=== PATIENT | male | born 2000 | race Caucasian/White ===

== ENCOUNTER 2025-07-28 20:15 | Inpatient (IN) | payer OTHER, SELFPAY ==
[2025-07-28 20:18] VITALS: BP 164/96; PULSE 99; O2SAT 98
--- NOTE | 2025-07-28 20:24 | PC.NURSE ---
pt unable to stand or participate in supervisor records change. security safety check done. nothing found per security.
[2025-07-28 20:38] VITALS: BP 155/93; PULSE 92; RESP 16; TEMP 36.7; O2SAT 97; BMI 45.6
--- NOTE | 2025-07-28 20:54 | ECG_ITS ---
Test Reason : MEDICAL CLEARANCE Blood Pressure : */* mmHG Vent. Rate : 89 BPM Atrial Rate : 89 BPM P-R Int : 166 ms QRS Dur : 90 ms QT Int : 378 ms P-R-T Axes : 28 32 12 degrees QTcB Int : 459 ms Normal sinus rhythm Normal ECG No previous ECGs available Referred By: Ana María Dubose Electronically Signed By: KATHY PUCKETT
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
--- OUTSIDE RECORDS SUMMARY | 2025-07-28 21:22 | XMS_ITS | Encounter Summary ---
Author Organization [facility] Address [address] [place] [phone] Phone Care Team Providers Care Nail Assembly Machine Operator Name Role Phone Fredy Tobar MD Primary Care Provider [phone] Encounter Details Date Type Department Care Team ([facility] st Contact Info) Description 03/12/2011 Conversion Encounter [facility] [address] [place] [address] [place] [id number] Social History Tobacco Use Types Packs/Day Years Used Date Smoking Tobacco: Never Assessed Sex and Gender Information Value Date Recorded Sex Assigned at Not on file Legal Sex Male 6:38 PM EDT Gender Identity Not on file Sexual Orientation Not on file documented as of this encounter Plan of Treatment Not on file documented as of this encounter Visit Diagnoses Not on filedocumented in this encounter Care Teams Nail Assembly Machine Operator Relationship Specialty Start Date End Date Fredy Tobar MD [address] [place] [address] [place] [id number] PCP - General 12/30/17 02/01/25 documented as of this encounter
--- OUTSIDE RECORDS SUMMARY | 2025-07-28 21:23 | XMS_ITS | Encounter Summary ---
Author Organization [facility] Address [address] [place] [id number] Phone Care Team Providers Care Swimming Pool Plasterer Helper Name Role Phone Fredy Tobar MD Primary Care Provider [phone] Reason for Visit * Reason Comments Med Change Request Encounter Details Date Type Department Care Team (Late st Contact Info) Description 06/07/2022 Refill [facility] [address] [place] [address] [place] [phone] Fredy Tobar MD [address] [place] [address] [place] [id number] Asthma, unspecified asthma severity, unspecified whether complicated, unspecified whether persistent Social History Tobacco Use Types Packs/Day Years Used Date Smoking Tobacco: Never Comments:Never Smoker Hunger/Food Answer Date Recorded In the last 12 months, did y ou or your family ever eat less than you felt you should because there wasn't enough money for food? No 01/29/2021 Stable Housing Answer Date Recorded Are you worried that in the next 2 months you may not have stable housing? No 01/29/2021 Transportation Concerns Answer Date Rec orded In the last 12 months, have you or your family ever had to go without healthcare because you didn't have a way to get there? No 01/29/2021 Hazards in Home Answer Date Recorded Think about the place you li ve. Do you have problems with any of the following? Pests (mice or roaches), mold, no/not working smoke detectors, water leaks, no window guards. No 2020 Financing Utilities Answer Date Recorde d In the last 12 months, has t he electric, gas, oil, or water company threatened to shut off your services in your home? No 01/29/2021 Safety at Home Answer Date Recorded Are you or your family worried about feeling saf e in your home? No 01/29/2021 Outside Support Answer Date Recorded Do you feel that you need mo re support from other people or programs to help you care for yourself or your family? No 01/29/2021 Understanding Health Concerns Answer Da te Recorded Do you need help understandi ng your or your child's healthcare needs (diagnosis, medications, plan, etc.)? No 01/29/2021 Financing Health Concerns Answer Date R ecorded In the last 12 months, was t here a time when your child needed to see a doctor or get medications or supplies but could not because of cost? No 01/29/2021 Missing School or Work Answer Date Nehemiah rded Did you or your child miss s chool or work because of a health problem that could have been avoided? No 01/29/2021 Sex and Gender Information Value Date Recorded Sex Assigned at Not on file Legal Sex Male 6:38 PM EDT Gender Identity Not on file Sexual Orientation Not on file documented as of this encounter Miscellaneous Notes * Telephone Encounter - Bridget Ledesma MA - 06/09/2022 8:39 AM EDT Overdue for wcc and nothing scheduled. PLEASE REFUSE documented in this encounter Plan of Treatment Not on file documented as of this encounter Visit Diagnoses Diagnosis Asthma, unspecified asthma severity, unspecified whether complicated, unspecified whether persistent documented in this encounter Care Teams Swimming Pool Plasterer Helper Relationship Specialty Start Date End Date Fredy Tobar MD [facility] [facility] [place] [address] PCP - General 12/30/17 02/01/25 documented as of this encounter
--- OUTSIDE RECORDS SUMMARY | 2025-07-28 21:23 | XMS_ITS | Clinical Summary ---
Author Organization [facility] Address [address] [place] [id number] Phone Care Team Providers Care Uniform Room Attendant Name Role Phone Unavailable Primary Care Provider Unavailabl e Allergies No known active allergies Medications albuterol (2.5 MG/3ML) 0.083% nebulizer solutionIndicat ions:Asthma, unspecified asthma severity, unspecified whether complicated, unspecified whether persistent Take 3 mL (2.5 mg total) by nebulization every 6 (six) hours as needed for wheezing. 90 mL 1 06/02/20 24 Active albuterol HFA (Ventolin HFA) 108 (90 Base) MCG/ACT inhalerIndicati ons:Asthma, unspecified asthma severity, unspecified whether complicated, unspecified whether persistent INHALE 2 PUFFS BY MOUTH EVERY 4 HOURS NEEDED FOR WHEEZING OR SHORTNESS OF BREATH 1 Units 1 04/28/20 25 Active budesonide (Pulmicort Flexhaler) 90 MCG/ACT inhalerIndicati ons:Moderate persistent asthma without complication INHALE 2 PUFFS EVERY DAY -RINSE MOUTH WITH WATER AFTER USE. DO NOT SWALLOW 1 Units 07/03/20 25 Active budesonide (Pulmicort Flexhaler) 90 MCG/ACT inhalerIndicati ons:Moderate persistent asthma without complication Inhale 2 puffs daily. Rinse mouth with water after use, do not swallow. 1 Units 3 06/27/20 24 2024 Discontinued Active Problems Problem Noted Date Diagnosed Date Refused influenza vaccine 07/11/2024 Moderate persistent asthma without complication 07/11/2024 Assessment & Plan (07/11/2024 2:02 PM EST): PFT shows he has low FVC and FEV1, but the ratio is 90%. He does not have good lung volumes. Perhaps this is why he decompensates quickly. The real issue is his weight. He has been referred to endocrinology, hopefully to discuss pre diabetic/diabetes and the possibility of Ozempic or other treatment. Will let me know if he does not get an appt. Influenza vaccine refused 10/14/2019 Influenza vaccine refused 10/12/2018 Morbid obesity 07/20/2012 Overview (10/12/2018): Morbid obesity (278.01) Onset: 07/20/2012 Added by: Fredy Tobar Assessment & Plan (01/29/2021 4:04 PM EDT): We discussed trying to walk every day. Discussed not binge eating. Need to cut back calories. Resolved Problems Problem Noted Date Diagnosed Date Resolved Date Michele haney 02/05/2019 11/18/2022 Moderate persistent asthma w ith acute exacerbation 11/01/2014 07/11/2024 Overview (06/28/2019): Moderate asthma (exacerbation) (493.02) Onset: 11/01/2014 Added by: Farida Spears 06/27/2019 - Significant asthma exacerbation. Steroid course. Triggers appear to be allergies in summer/fall. Continue with QVAR BID, adding singulair December-Jul. Assessment & Plan (06/03/2024 9:21 AM EDT): Asthma exacerbation. Referring to ED for further treatment of asthma exacerbation. Called expect to [facility] ED. Assessment & Plan (11/11/2023 1:17 PM EDT): Differential includes AOM, pneumonia, viral URI, asthma exacerbation. No signs of AOM or pneumonia. Most likely diagnosis is viral URI with asthma exacerbation. Discussed supportive therapy with fluids and tylenol/ibuprofen for fever. Exam consistent with asthma exacerbation and will treat with corticosteroid course and use of albuterol as needed. Return for ear pain, persistent fever, worsening breathing issues or new symptom. Start back up with controller medication QVAR after prednisone course. He was on flovent previously but this has been discontinued and he was not able to get a refill. Assessment & Plan (09/05/2019 11:48 AM EST): Plan to continue with QVAR and singulair. This is helping some but still needing to use albuterol twice in the last week. Will refer to Dr. Martinez for further evaluation. Assessment & Plan (07/29/2019 10:52 AM EST): Concerning spirometry study today showing significant asthma ongoing. Patient is likely accustomed to a certain amount of asthma going on. Patient did not continue with singulair, discussed going back on this medication for the time being. Continue with QVAR BID. Use albuterol as needed. Follow up in 5-6 weeks. Assessment & Plan (06/28/2019 6:17 AM EST): Differential includes AOM, pneumonia, viral URI, asthma exacerbation. No signs of AOM or pneumonia. Most likely diagnosis is viral URI with asthma exacerbation. Discussed supportive therapy with fluids and tylenol/ibuprofen for fever. Exam consistent with asthma exacerbation and will treat with corticosteroid course and use of albuterol as needed. Return for ear pain, persistent fever, worsening breathing issues or new symptom. Triggers seem to be allergies in summer/fall time of year. Will start singulair and follow up in a month. Likely plan to treat with singulair from December to July. Encounters Date Type Department Care Team Description 07/02/2025 Refill [facility] [address] [place] [address] [place] [id number] Fredy Tobar MD Moderate persistent asthma without complication from Last 3 Months Immunizations Immunization Administration Dates Next Due DTaP 5 04/28/2006, 3,2001,09/01,2001 HPV Vaccine 9 Valent 09/18/2015 HPV, Quadrivalent 11/08/2014,08/29/2014 Hep A, ped/adol 09/10/2017,09/22/2016 Hep B, ped/adol 07/27/2002,2001,2001 Hib (PRP-T) 10/24/2002, 2,2001,06/30 IPV 04/28/2006, 3,2001,06/30 Influenza, injectable, quadr ivalent, preservative free 09/18/2015 Influenza, injectable, trivalent 06/07/2007 MMR 04/28/2006,04/27/2002 Meningococcal Conj (Menactra) MCV4P 09/10/2017,0 09/23/2013 Pneumococcal Conjugate 04/27/2003,2001,04/2002 Tdap 11/18/2022,07/20/2012 Varicella 07/20/2012,04/27/2002 Family History Medical History Relation Name Comments No Known Problems Brother 1 Johnathan No Known Problems Father Son No Known Problems Mother Roland No Known Problems Sister 1 Clara No Known Problems Sister 2 Cristine Relation Name Status Comments Brother 1 Johnathan Alive Brother 2 Gokul (Age 22) Accidental Overdose Father Son Alive Mother Roland Alive Sister 1 Clara Alive Sister 2 Cristine Alive Social History Tobacco Use Types Packs/Day Years Used Date Smoking Tobacco: Never Comments:Never Smoker Alcohol Use Standard Drinks/Week Comments Never 0 (1 standard drink = 0.6 oz pur e alcohol) Hunger/Food Answer Date Recorded In the last 12 months, did y ou or your family ever eat less than you felt you should because there wasn't enough money for food? Yes 05/02/2024 Stable Housing Answer Date Recorded Are you worried that in the next 2 months you may not have stable housing? No 05/02/2024 Transportation Concerns Answer Date Rec orded In the last 12 months, have you or your family ever had to go without healthcare because you didn't have a way to get there? No 05/02/2024 Hazards in Home Answer Date Recorded Think about the place you li ve. Do you have problems with any of the following? Pests (mice or roaches), mold, no/not working smoke detectors, water leaks, no window guards. No 2023 Financing Utilities Answer Date Recorde d In the last 12 months, has t he electric, gas, oil, or water company threatened to shut off your services in your home? No 05/02/2024 Safety at Home Answer Date Recorded Are you or your family worried about feeling saf e in your home? No 05/02/2024 Outside Support Answer Date Recorded Do you feel that you need mo re support from other people or programs to help you care for yourself or your family? No 05/02/2024 Understanding Health Concerns Answer Da te Recorded Do you need help understandi ng your or your child's healthcare needs (diagnosis, medications, plan, etc.)? No 05/02/2024 Financing Health Concerns Answer Date R ecorded In the last 12 months, was t here a time when your child needed to see a doctor or get medications or supplies but could not because of cost? No 05/02/2024 Missing School or Work Answer Date Nehemiah rded Did you or your child miss s chool or work because of a health problem that could have been avoided? No 05/02/2024 Child Education Answer Date Recorded Do you have concerns about y our/your child's learning or behavior in school, preschool, or daycare? No 05/02/2024 Sex and Gender Information Value Date Recorded Sex Assigned at Not on file Legal Sex Male 6:38 PM EDT Gender Identity Not on file Sexual Orientation Not on file Last Filed Vital Signs Vital Sign Reading Time Taken Comments Blood Pressure 128/70 05/02/2024 2:26 PM EDT Pulse 126 06/03/2024 8:28 AM EDT Temperature 36.1 C (97 F) 07/11/2024 1:40 PM EST Respiratory Rate - - Oxygen Saturation 91% 06/03/2024 8:28 AM EDT Inhaled Oxygen Concentration - - Weight 159 kg (351 lb) 07/11/2024 1:40 PM EST Height 172 cm (5' 7.72 ) 07/11/2024 1:40 PM EST Body Mass Index 53.82 07/11/2024 1:40 PM EST Plan of Treatment Health Maintenance Due Date Last Done Comments Influenza Vaccines (#1) 2025 09/18/2015, 06/07 COVID-19 Vaccine ( season) 2025 DTaP,Tdap,and Td Vaccines (8 - Td or Tdap) 11/18/2032 11/18/2022, 07/20/2012, 04/28/2006, Additional history exists Hepatitis B Vaccines Completed 07/27/2002, 2001, 2001 HIB Vaccines Completed 10/24/2002, 10/22, 2001, Additional history exists Pneumococcal Vaccine Completed 04/27/2003, 2001, 2001 IPV Vaccines Completed 04/28/2006, 10/2002, 2001, Additional history exists MMR Vaccines Completed 04/28/2006, 04/27/2002 Varicella Vaccines Completed 07/20/2012, 04/27/2002 HPV Vaccines Completed 09/18/2015, 10/22, 08/29/2014 Hepatitis A Vaccines Completed 09/10/2017, 09/22/19 17 Meningococcal Vaccine Completed 09/10/2017, 014 Men B Vaccine Aged Out No longer elig beny based on patient's age to complete this topic Insurance [facility]
[2025-07-28 21:40] LABS: MANUAL DIFF FLAG NO
[2025-07-28 21:41] LABS: Hematocrit 42.7 % (42.0-52.0); Hemoglobin 14.0 g/dl (14.0-18.0); Imm Gran Abs Auto 0.03 X10*3/uL (0.00-0.03); Imm Gran Pct Auto 0.3 % (0.0-0.4); Lymphocytes Absolute Auto 2.1 X10*3/uL (1.2-4.9); Mean Corpuscular HGB Conc 32.8 g/dl (31.0-36.0); Mean Corpuscular Hemoglobin 30.6 pg (27.0-33.0); Mean Corpuscular Volume 93.2 fL (80.0-98.0); NRBC Abs Auto 0.000 X10*3/uL (0.0-0.012); NRBC Pct Auto 0.0 /100WBC (0.0-0.2); Platelet Count 281 X10*3/uL (160-400); Red Blood Count 4.58 X10*6/uL (4.60-5.80); White Blood Count 9.7 X10*3/uL (4.8-10.8)
[2025-07-28 21:55] LABS: COVID-19 Test Negative (Negative); IDNOW Serial# 6674DD1D
[2025-07-28 21:56] LABS: Alanine Aminotransferase 25 U/L (0-40); Albumin Level 4.0 g/dL (3.5-5.0); Alkaline Phosphatase 107 U/L (39-117); Anion Gap 12 (12-20); Aspartate Amino Transferase 23 U/L (5-37); Blood Urea Nitrogen 6 mg/dL (9-16); Calcium 9.1 mg/dL (8.4-10.2); Carbon Dioxide 27 mmol/L (22-29); Chloride 107 mmol/L (96-108); Creatinine Clr Calc Pharmacy 180.9; Estimated Glomerular Filt Rate > 60; Potassium 4.2 mmol/L (3.3-5.1); Sodium 142 mmol/L (135-145); Total Protein 7.4 g/dL (6.5-8.0)
[2025-07-28 21:58] LABS: Acetaminophen LAB < 3 mcg/mL (<30); Salicylate < 5.0 mg/dL (15-30)
--- NOTE | 2025-07-28 22:58 | PC.NURSE ---
Report recieved by pulp grinder feeder Xio. Patient tar heat exchanger cleaner completed in the Main. Observed ambulating with steady gait. Presents as calm and cooperative. Provided urine sample. Denied fluids/snack when offered. Endorses vague +SI. No current plan/intent. Feels safe on the unit. Denies HI/AVH. Agreeable to alert staff if feeling unsafe. Denies pain/discomfort. Meal tray ordered. 15 minute safety checks initiated. Plan for medical clearance and CARE Team Eval.
[2025-07-28 23:08] LABS: Appearance Urine Cloudy; Glucose Urine UA Negative (Negative); PH 5.5 (5.0-9.0); Specific Gravity - Urine 1.020 (1.005-1.025); UMIC TRIGGER UA YES
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
[2025-07-28 23:16] LABS: Cannabinoid Screen Urine Not Detected (Not Detect)
[2025-07-29 06:38] VITALS: BP 136/85; PULSE 91; RESP 20; TEMP 36.3; O2SAT 98
--- NOTE | 2025-07-29 08:24 | PC.NURSE ---
Assumed care, report received. Pt wakes for breakfast and to use the bathroom. He continues to endorse feeling very depressed and thoughts of SI. He goes back to bed.
[2025-07-29 15:25] VITALS: BP 136/88; PULSE 100; RESP 18; TEMP 36.8; O2SAT 97
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
[2025-07-29 20:00] VITALS: BP 131/84; PULSE 98; TEMP 36.3; O2SAT 95
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
[2025-07-30 07:49] VITALS: BP 124/73; PULSE 84; RESP 14; TEMP 36.8; O2SAT 98
[2025-07-30] MEDS: Albuterol Sulfate 90 MCG 8 GM INHALER 2 PUFF INHALE (17:58)
[2025-07-30 21:48] VITALS: BP 127/65
[2025-07-30 21:56] VITALS: BP 127/65; PULSE 86; RESP 18; TEMP 36.7; O2SAT 98
[2025-07-31 08:00] VITALS: BP 128/69; PULSE 85; TEMP 36.9; O2SAT 97
[2025-07-31 08:31] LABS: Cholesterol 142 mg/dL (<200); HDL Cholesterol 28 mg/dL (>40); Magnesium 1.9 mg/dL (1.6-2.6); Triglycerides 105 mg/dL (<150)
[2025-07-31 08:46] LABS: Free T4 (Free Thyroxine) 0.94 ng/dL (0.71-1.85); Thyroid Stimulating Hormone 2.73 uIU/mL (0.32-4.0)
[2025-07-31 08:59] LABS: Folate 5.1 ng/mL (> or = 4.0); Vitamin B12 214 pg/mL (200-900)
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
[2025-07-31 20:00] VITALS: BP 137/70; PULSE 86; TEMP 36.9; O2SAT 94
[2025-07-31 21:00] VITALS: BP 137/70
[2025-08-01 08:00] VITALS: BP 139/84; PULSE 82; TEMP 36.6; O2SAT 97
[2025-08-01] MEDS: Albuterol Sulfate 90 MCG 8 GM INHALER 2 PUFF INHALE (16:30)
[2025-08-01 20:00] VITALS: BP 130/91; PULSE 88; TEMP 36.6; O2SAT 96
[2025-08-01 20:50] VITALS: BP 130/91
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
[2025-08-02 08:00] VITALS: BP 123/71; PULSE 78; TEMP 36.6; O2SAT 97
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
[2025-08-02 20:00] VITALS: BP 147/86; PULSE 97; TEMP 37.1; O2SAT 96
[2025-08-03 07:00] VITALS: BMI 48.4
[2025-08-03 08:00] VITALS: BP 116/74; PULSE 80; TEMP 36.1; O2SAT 95
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
[2025-08-03 19:55] VITALS: BP 136/79; PULSE 104; RESP 18; TEMP 3.2; TEMP 37.7; O2SAT 95
[2025-08-03 21:33] VITALS: BP 130/74
[2025-08-04 08:00] VITALS: BP 146/72; PULSE 100; TEMP 36.6; O2SAT 95
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
== END 2025-08-04 11:14 | disposition home or self-care (01) | DRG 754 ==
LOC: HO.ED 22:46 → HO.PM5 07-29 12:16
PROVIDERS: Physician Assistant Medical; Admitting Provider Clinical Nurse Specialist Psychiatric/Mental Health, Adult; Emergency Provider Student in an Organized Health Care Education/Training Program; Visit Provider Clinical Nurse Specialist Psychiatric/Mental Health, Adult
DX: F32.9 Major depressive disorder, single episode, unspecified (principal); R45.851 Suicidal ideations; J45.30 Mild persistent asthma, uncomplicated; F43.10 Post-traumatic stress disorder, unspecified; Z20.822 Contact with and (suspected) exposure to COVID-19; Z79.899 Other long term (current) drug therapy
CPT/HCPCS: 36415; 80053; 80061; 80143; 80179; 80307; 81001; 82607; 82746; 83036; 83735; 84439; 84443; 85025; 87635; 93005; 99285; S9485

== ENCOUNTER → 2025-07-28 20:54 | Outpatient (BNV) | payer OTHER, SELFPAY | PROVIDERS: Admitting Provider Clinical Nurse Specialist Psychiatric/Mental Health, Adult; Emergency Provider Student in an Organized Health Care Education/Training Program; Visit Provider Internal Medicine | DX: Z13.6 Encounter for screening for cardiovascular disorders (principal) | CPT/HCPCS: 93010 ==

== ENCOUNTER → 2025-07-29 12:11 | Outpatient (BNV) | payer OTHER, SELFPAY | PROVIDERS: Admitting Provider Clinical Nurse Specialist Psychiatric/Mental Health, Adult; Emergency Provider Student in an Organized Health Care Education/Training Program; Visit Provider Nurse Practitioner Family | DX: F34.9 Persistent mood [affective] disorder, unspecified (principal) | CPT/HCPCS: 99221 ==

== ENCOUNTER → 2025-07-29 12:11 | Outpatient (BNV) | payer OTHER, SELFPAY | PROVIDERS: Admitting Provider Clinical Nurse Specialist Psychiatric/Mental Health, Adult; Emergency Provider Student in an Organized Health Care Education/Training Program; Visit Provider Clinical Nurse Specialist Psychiatric/Mental Health, Adult | DX: F43.10 Post-traumatic stress disorder, unspecified (principal); F34.9 Persistent mood [affective] disorder, unspecified | CPT/HCPCS: 90792 ==